=== PATIENT | male | born 1960 | race African-American/Black ===

== ENCOUNTER 2016-08-29 01:14 | Emergency (ER) | payer OTHER ==
[~2016-08-29] VITALS: Ht 177.8 cm; Wt 90.7 kg
[2016-08-29] MEDS ORDERED: LO-DOSE ASPIRIN81 MG PO (01:41)
[2016-08-29] MEDS ORDERED: GLYBURIDE5 M1 PO (01:42)
[2016-08-29] MEDS ORDERED: ATORVASTATIN CA40 M1 PO (01:42)
[2016-08-29] MEDS ORDERED: METFORMIN HCL500 M3 PO (01:43)
[2016-08-29] MEDS ORDERED: MOMETASONE FURO45 GM TOP (01:43)
[2016-08-29] MEDS ORDERED: DOCUSATE SODIU1 EACH PO (01:44)
[2016-08-29] MEDS ORDERED: JANUVIA100 M1 PO (01:44)
[2016-08-29 02:35] LABS: ABSOLUTE BASOPHIL COUNT 0 /CUMM (0.0-0.2); ABSOLUTE EOSINOPHIL COUNT 0.3 /CUMM (0.0-0.7); ABSOLUTE GRANULOCYTE CT 2.8 /CUMM (1.4-6.5); ABSOLUTE LYMPH COUNT 2.4 /CUMM (1.2-3.4); ABSOLUTE MONOCYTE COUNT 0.9 /CUMM (0.10-0.60); BASOPHIL % 0.5 % (0.0-2.0); EOSINOPHIL % 4.3 % (0-5); GRANULOCYTE % 43.2 % (42.2-75.2); HEMATOCRIT 41.3 % (42-52); MEAN CORPUSCULAR HGB 29.2 PG (27.0-31.0); MEAN CORPUSCULAR HGB CONC 33.2 G/DL (33.0-37.0); MEAN CORPUSCULAR VOLUME 87.9 FL (80.0-94.0); MEAN PLATELET VOLUME 8.5 FL (7.4-10.4); PLATELET COUNT 189 /CUMM (130-400); RBC DISTRIBUTION WIDTH 13.9 % (11.5-14.5); WHITE BLOOD CELL COUNT 6.5 /CUMM (4.8-10.8)
--- NOTE | 2016-08-29 02:51 | ED GI/GU/ABDOMINAL COMPLAINT ---
History of Present Illness General Chief Complaint: Abdominal Pain/Flank Pain Stated Complaint: ABD PAIN RADIATING TOWARDS BACK,AND GROIN PAIN Source: patient, old records Exam Limitations: no limitations Vital Signs & Intake/Output Vital Signs & Intake/Output Vital Signs Date Time Temp Pulse Resp B/P Pulse O2 O2 Flow FiO2 Ox Delivery Rate 08/29 0133 96.5 98 20 125/81 99 Room Air Allergies Coded Allergies: NO KNOWN ALLERGIES (10/10/11) Reconcile Medications Aspirin (Lo-Dose Aspirin EC) 81 MG TABLET.DR 1 TAB PO DAILY PER LIST ( Reported) Atorvastatin Calcium 40 MG TABLET 1 TAB PO DAILY PER LIST (Reported) Glyburide 5 MG TABLET 1 TAB PO BID PER LIST (Reported) Metformin HCl 500 MG TABLET 1 TAB PO BID PER LIST (Reported) Mometasone Furoate 0.1 % CREAM..G. 1 MIGUEL ÁNGEL TOP DAILY PER LIST (Reported) apply to affected area(s) Sennosides/Docusate Sodium (Docusate Sodium-Senna Tablet) 8.6 MG-50 MG TABLET 1 TAB PO DAILY PRN PER LIST (Reported) Sitagliptin Phosphate (Januvia) 100 MG TABLET 1 TAB PO DAILY PER LIST ( Reported) Triage Note: PT C/O CONSTANT 8/10 "SHARP" L FLANK PAIN. PT ALSO COMPLAINING OF INTERMITTENT GROIN PAIN. DENIED ANY URINARY S/S Triage Nurses Notes Reviewed? yes Onset: 6 weeks Duration: week(s):, changing over time, continues in ED, waxing and waning Timing: recent history Quality/Severity: aching, severe Location: left flank Radiation: LLQ, periumbilical Activities at Onset: none Prior Abdominal Problems: similar symptoms Past Sexual History: Unobtainable at this time Modifying Factors: Improves With: rest. Worsens With: palpation. Associated Symptoms: abdominal pain, lower back pain HPI: 6 weeks prior to admission patient complains of left flank pain radiating to the left lower quadrant periumbilical area occurring intermittently lasting for short period of time mild severity. 10 days prior to admission patient complains of increasing severity of the pain with increased duration. Denies fever chills nausea vomiting diarrhea chest pain cough shortness of breath headache dysuria rash bleeding. Past History Travel History Traveled to [place] past 21 day No Medical History Any Pertinent Medical History? see below for history Cardiovascular: hyperlipidemia Respiratory: SARCOIDOSIS Gastrointestinal: diverticulitis, pancreatitis Endocrine: diabetes Surgical History Surgical History: cholecystectomy Psychosocial History What is your primary language Greenlandic Tobacco Use: Quit >30 days ago Family History Hx Contributory? No Review of Systems Review of Systems Constitutional: Reports: no symptoms. EENTM: Reports: no symptoms. Respiratory: Reports: no symptoms. Cardiovascular: Reports: no symptoms. GI: Reports: see HPI, abdominal pain. Genitourinary: Reports: no symptoms. Musculoskeletal: Reports: no symptoms. Skin: Reports: no symptoms. Neurological/Psychological: Reports: no symptoms. Hematologic/Endocrine: Reports: no symptoms. Immunologic/Allergic: Reports: no symptoms. All Other Systems: Reviewed and Negative Physical Exam Physical Exam General Appearance: well developed/nourished, alert, awake, comfortable Head: atraumatic, normal appearance Eyes: Bilateral: normal appearance, PERRL, EOMI, normal inspection. Ears, Nose, Throat, Mouth: hearing grossly normal, moist mucous membrane Neck: normal inspection, supple, full range of motion, normal alignment Respiratory: normal breath sounds, chest non-tender, no respiratory distress, quiet respiration, lungs clear Cardiovascular: regular rate/rhythm, normal peripheral pulses, norml femoral pulses equa Peripheral Pulses: 4+ carotid (R), 4+ carotid (L) Gastrointestinal: normal bowel sounds, soft, non-tender, no organomegaly Male Genitals: normal genitalia Back: normal inspection, normal range of motion Extremities: normal range of motion, no ligament instability Neurologic/Psych: no motor/sensory deficits, awake, alert, oriented x 3, normal gait, normal mood/affect, 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 No Severe Sepsis Present: No Septic Shock Present: No Progress Differential Diagnosis: diverticulitis, gastritis, pancreatitis, SBO Plan of Care: Orders Procedure Date/time Status URINALYSIS 08/29 144 Complete LIPASE 08/29 144 Complete COMPREHENSIVE METABOLIC PANEL 08/29 144 Complete CBC WITHOUT DIFFERENTIAL 08/29 144 Complete AMYLASE 08/29 144 Complete Laboratory Tests 08/29/16 0341: Urinalysis LIGHT H, Urine Color YEL, Urine Clarity CLEAR, Urine pH 6.0, Ur Specific [place] 1.025, Urine Protein NEG, Urine Ketones NEG, Urine Nitrite NEG, Urine Bilirubin NEG, Urine Urobilinogen 0.2, Ur Leukocyte Esterase NEG, Ur Microscopic SEDIMENT EXAMINED, Urine RBC 3-5, Urine Bacteria RARE H, Urine Mucus RARE, Urine Hemoglobin TRACE-INTACT H, Urine Glucose NEG 08/29/16 0218: Anion Gap 11, Estimated GFR > 60, BUN/Creatinine Ratio 20.0, Glucose 128 H, Calcium 10.4 H, Total Bilirubin 0.6, AST 42, ALT 42, Alkaline Phosphatase 76, Total Protein 7.7, Albumin 4.2, Globulin 3.5, Albumin/Globulin Ratio 1.2, Amylase 95, Lipase 191, CBC w Diff NO MAN DIFF REQ, RBC 4.70, MCV 87.9, MCH 29.2 , RDW 13.9, MPV 8.5, Gran % 43.2, Lymphocytes % 37.5, Monocytes % 14.5 H, Eosinophils % 4.3, Basophils % 0.5, Absolute Granulocytes 2.8, Absolute Lymphocytes 2.4, Absolute Monocytes 0.9 H, Absolute Eosinophils 0.3, Absolute Basophils 0, PUBS MCHC 33.2 Diagnostic Imaging: Viewed by Me: CT Scan. Discussed w/RAD: CT Scan. Radiology Impression: No acute findings of the abdomen or pelvis. No hydronephrosis. Tiny nonobstructing right midpole renal calculus. Scattered colonic diverticulosis without diverticulitis. Moderate colonic stool burden. Right femoral head avascular necrosis. Initial ED EKG: none Departure Departure Time of Disposition: 418 Disposition: HOME OR SELF CARE Condition: Stable Clinical Impression Primary Impression: Renal colic on left side Secondary Impressions: Abdominal pain Qualifiers: Abdominal location: left lower quadrant Qualified Code: R10.32 - Left lower quadrant pain Referrals: UNKNOWN (PCP/Family) Departure Forms: Customer Survey General Discharge Information Prescriptions: Current Visit Scripts Ibuprofen 1 TAB PO Q6PRN PRN pain #50 TAB with food Tramadol HCl (Ultram) 1-2 TAB PO Q6PRN PRN severe pain #30 TAB
--- NOTE | 2016-08-29 04:11 | CT SCAN REPORT ---
EXAMINATION: CT ABDOMEN AND PELVIS WITHOUT CONTRAST CLINICAL INFORMATION: Renal colic. Left flank pain. COMPARISON: 02/24/2013 TECHNIQUE: Multidetector volumetric imaging was performed from the superior aspect of the liver through the pubic symphysis. Sagittal and coronal reformatted images were obtained on the technologist's workstation. DLP: 494 mGy-cm FINDINGS: LUNG BASES: Patchy opacity is seen in the left lower lobe and lingula. Minimal opacities are also seen at the right lung base with areas of pleural thickening. These findings are similar to the CT from 2013 and likely chronic. Coronary artery calcifications are present. LIVER, GALLBLADDER, AND BILIARY TREE: The liver is normal in size, shape, and attenuation. No focal hepatic lesion or biliary ductal dilatation is present. Status post cholecystectomy. PANCREAS: Unremarkable. SPLEEN: Unremarkable. ADRENAL GLANDS: Unremarkable. KIDNEYS AND URETERS: The kidneys are normal in size, shape, and attenuation. No hydronephrosis or hydroureter. No perinephric stranding. 1.1 cm left midpole renal cyst. 0.2 cm right midpole renal calculus, 12 cm from the posterior axillary line. BLADDER: Unremarkable. GASTROINTESTINAL TRACT: The stomach and small bowel are unremarkable. Fecalization of the distal ileum suggests slow transit. No dilated loops of bowel or evidence of obstruction. There is scattered colonic diverticulosis without diverticulitis. Normal appendix. Moderate colonic stool burden. ABDOMINAL WALL: No significant hernia is appreciated. LYMPH NODES: Normal. VASCULAR: Mild atherosclerotic calcifications. PELVIC VISCERA: The prostate and seminal vesicles are unremarkable. OSSEOUS STRUCTURES: No acute or suspicious osseous abnormality. Degenerative changes of the spine. Vacuum disc phenomenon at L5-S1. Avascular necrosis seen in the right femoral head. No evidence of collapse. IMPRESSION: No acute findings of the abdomen or pelvis. No hydronephrosis. Tiny nonobstructing right midpole renal calculus. Scattered colonic diverticulosis without diverticulitis. Moderate colonic stool burden. Right femoral head avascular necrosis.
[2016-08-29] MEDS ORDERED: ULTRAM50 M1 PO (04:21)
[2016-08-29] MEDS ORDERED: IBUPROFEN600 M1 PO (04:21)
[2016-08-29 05:07] VITALS: BP 130/80
== END 2016-08-29 05:08 ==
LOC: ERH 01:14
PROVIDERS: Emergency Medicine
DX: N23 Unspecified renal colic (principal); R10.32 Left lower quadrant pain
CPT/HCPCS: 74176; 81001; 96360